=== PATIENT | male | born 1955 | race Caucasian/White ===

== ENCOUNTER 2021-07-26 13:24 | Observation (INO) ==
[2021-07-26 14:24] LABS: ABS Lymphocytes 0.6 10^3/ul (1.0-4.8); ABS Monocytes 0.3 10^3/ul (0-0.8); ABS Neutrophils 5.8 10^3/ul (1.5-7.7); Eosinophil % 0.1 %; Hematocrit 44 % (42-52); Hemoglobin 15.4 g/dL (14.0-18.0); Lymphocyte % 8.6 %; Mean Corpuscular HGB Conc 35 g/dL (31-36); Mean Corpuscular Hemoglobin 32 pg (27-31); Mean Corpuscular Volume 91 fL (80-94); Mean Platelet Volume 7.1 fL (7.4-10.4); Platelet Count 212 10^3/uL (150-450); Red Blood Count 4.83 10^6 /uL (4.18-5.48); Red Cell Distribution Width 13 % (10-15); White Blood Count 6.7 10^3/uL (3.5-10.8)
[2021-07-26 14:33] LABS: INR 1.04 (0.86-1.15)
[2021-07-26 14:34] LABS: Albumin 4.1 g/dL (3.2-5.2); Albumin/Globulin Ratio 1.5 (1-3); Calcium 8.9 mg/dL (8.6-10.3); Globulin 2.7 g/dL (2-4); Potassium 3.9 mmol/L (3.5-5.0); Total Bilirubin 0.6 mg/dL (0.2-1.0); Total Protein 6.8 g/dL (6.4-8.9); eGFR CKD-EPI 74.6 (>60)
[2021-07-26] MEDS ORDERED: Al Hydrox/Mg Hydrox/Simet LIQ 30 ML UDC PO ONE (16:40)
[2021-07-26] MEDS ORDERED: Iohexol 350 (CONTRAST) 500 ML MDV IV ONE (18:09)
[2021-07-26] MEDS ORDERED: Enoxaparin 40 MG/0.4 ML SYR SUBCUT SCH (23:45)
[2021-07-27 00:02] LABS: Rapid COVID-19 Molecular Undetected (Undetected)
[2021-07-27 00:10] LABS: Potassium 3.6 mmol/L (3.5-5.0); eGFR CKD-EPI 68.6 (>60)
[2021-07-27 00:14] LABS: Troponin I 0.01 ng/mL (<0.03)
[2021-07-27 06:30] LABS: ABS Eosinophils 0.1 10^3/ul (0-0.6); ABS Lymphocytes 1.4 10^3/ul (1.0-4.8); ABS Monocytes 0.4 10^3/ul (0-0.8); ABS Neutrophils 2.7 10^3/ul (1.5-7.7); Eosinophil % 1.4 %; Hematocrit 43 % (42-52); Hemoglobin 15.1 g/dL (14.0-18.0); Lymphocyte % 30.4 %; Mean Corpuscular HGB Conc 35 g/dL (31-36); Mean Corpuscular Hemoglobin 32 pg (27-31); Mean Corpuscular Volume 91 fL (80-94); Mean Platelet Volume 6.7 fL (7.4-10.4); Platelet Count 173 10^3/uL (150-450); Red Blood Count 4.72 10^6 /uL (4.18-5.48); Red Cell Distribution Width 13 % (10-15); White Blood Count 4.6 10^3/uL (3.5-10.8)
[2021-07-27 07:19] LABS: HDL Cholesterol 45.9 mg/dL
[2021-07-27 07:22] LABS: Troponin I 0.02 ng/mL (<0.03)
[2021-07-27 11:27] VITALS: BP 134/84
== END 2021-07-27 13:50 | disposition home or self-care (01) ==
LOC: ED 13:24 → EDHOLD 13:24 → SUATTDRO 23:41 → MEDTELE 07-27 03:53
PROVIDERS: ADMIT Internal Medicine; ATTEND Internal Medicine

== ENCOUNTER 2024-05-06 14:35 | Observation (INO) ==
[2024-05-06] MEDS: Acetaminophen IV 1 GM/100ML 1,000 MG/100 ML BAG IV ONE (18:20)
[2024-05-06] MEDS: Morphine 4 MG/ML VIAL (1 ml) IV ONE (18:20)
[2024-05-06 18:29] LABS: ABS Eosinophils 0.2 10^3/uL (0.0-0.5); ABS Lymphocytes 1.1 10^3/uL (1.0-4.8); ABS Monocytes 0.4 10^3/uL (0.0-1.1); ABS Neutrophils 3.1 10^3/uL (1.5-7.6); ABS Nucleated RBC 0.01 10^3/ul; Eosinophil % 3.4 %; Hematocrit 42.2 % (38-53); Lymphocyte % 22.7 %; Mean Corpuscular Hemoglobin 32.3 pg (27-33); Mean Corpuscular Hgb Conc 35.5 g/dL (31-36); Mean Corpuscular Volume 90.9 fL (80-97); Mean Platelet Volume 6.5 fL (7.5-11.2); Nucleated Red Blood Cells % 0.2 %/100WBC (0.0-0.8); Platelet Count 216 10^3/uL (150-450); Red Blood Count 4.64 10^6/uL (4.06-5.63); Red Cell Distribution Width 12.7 % (12-17); White Blood Count 4.8 10^3/uL (3.6-10.2)
[2024-05-06 18:38] LABS: INR 1.02 (0.85-1.14)
[2024-05-06 18:54] LABS: Albumin 4.3 g/dL (3.2-5.2); Albumin/Globulin Ratio 1.8 (1-3); CRP High Sensitivity 8.32 mg/L (<2.00); Calcium 8.9 mg/dL (8.6-10.3); Creatinine, Serum 1.29 mg/dL (0.67-1.17); Globulin 2.4 g/dL (2-4); Potassium 4.1 mmol/L (3.5-5.0); Total Bilirubin 0.5 mg/dL (0.2-1.0); Total Protein 6.7 g/dL (6.4-8.9); eGFR CKD-EPI 61.2 (>60)
[2024-05-06 20:38] LABS: Erythrocyte Sed Rate 16 mm/Hr (0-19)
[2024-05-06] MEDS: Iohexol 350 (CONTRAST) 500 ML MDV IV ONE (22:28)
[2024-05-07 06:56] LABS: ABS Eosinophils 0.1 10^3/uL (0.0-0.5); ABS Lymphocytes 0.8 10^3/uL (1.0-4.8); ABS Monocytes 0.3 10^3/uL (0.0-1.1); ABS Neutrophils 3.5 10^3/uL (1.5-7.6); ABS Nucleated RBC 0.02 10^3/ul; Hematocrit 41.5 % (38-53); Hemoglobin 14.5 g/dL (13.2-16.3); Lymphocyte % 16.7 %; Mean Corpuscular Hemoglobin 31.9 pg (27-33); Mean Corpuscular Volume 91.1 fL (80-97); Nucleated Red Blood Cells % 0.4 %/100WBC (0.0-0.8); Platelet Count 187 10^3/uL (150-450); Red Blood Count 4.55 10^6/uL (4.06-5.63); Red Cell Distribution Width 12.8 % (12-17); White Blood Count 4.7 10^3/uL (3.6-10.2)
[2024-05-07 07:47] LABS: Calcium 8.8 mg/dL (8.6-10.3); Creatinine, Serum 1.21 mg/dL (0.67-1.17); Potassium 4.2 mmol/L (3.5-5.0)
[2024-05-07 07:59] LABS: Urine Appearance No Cx Clear (Clear); Urine Bilirubin No Culture Negative (Negative); Urine Blood No Culture Negative (Negative); Urine Color No Culture Light-Yellow; Urine Glucose No Culture Negative (Negative); Urine Ketones No Culture Negative (Negative); Urine Leukocytes No Culture Negative Leu/uL (Negative); Urine Nitrite No Culture Negative (Negative); Urine Protein No Culture Negative (Negative); Urine Specific Gravity No Cx 1.042 (1.002-1.030); Urine Urobilinogen No Cx Negative (Negative)
[2024-05-07 08:00] LABS: Ur Squamous Epithelial No Cx Present /HPF (Absent); Urine Bacteria No Culture Absent /HPF (Absent); Urine Red Blood Cell No Cult Trace(0-2/hpf) /HPF (0-Trace); Urine White Blood Cell No Cult Trace(0-5/hpf) /HPF (0-Trace)
[2024-05-07 09:53] VITALS: BP 102/50
== END 2024-05-07 12:22 | disposition home or self-care (01) ==
LOC: ED 14:35 → EDHOLD 14:35 → MEDTELE 05-07 03:01
PROVIDERS: ADMIT Internal Medicine; ATTEND Student in an Organized Health Care Education/Training Program